=== PATIENT | male | born 1950 | race Hispanic/Latino ===

== ENCOUNTER 2018-12-19 16:24 | Inpatient (IN) | payer MEDICARE, OTHER ==
[2018-12-19] MEDS ORDERED: Sodium Chloride 0.9% 1,000 ML IV STA (17:06)
[2018-12-19 17:23] LABS: BASO % 0.4 % (0.0-2.0); EOS # 0.4 K/uL (0.0-0.7); EOS % 4.7 % (0.0-4.0); HEMOGLOBIN 14.8 g/dL (12.0-18.0); LYMPH # 1.2 K/uL (1.0-4.3); MEAN CELL VOLUME 95.4 fl (80.0-94.0); MEAN CORPUSCULAR HEMOGLOBIN 31.5 pg (27.0-31.0); MEAN PLATELET VOLUME 8.1 fl (7.2-11.7); MONO # 0.6 K/uL (0.0-0.8); MONO % 7.4 % (0.0-10.0); NEUT # 5.7 K/uL (1.8-7.0); NEUT % 72.5 % (50.0-75.0); RBC 4.69 Mil/uL (4.40-5.90); RED CELL DISTRIBUTION WIDTH 13.4 % (11.5-14.5); WHITE BLOOD COUNT 7.8 K/uL (4.8-10.8)
--- NOTE | 2018-12-19 17:27 | ED PDOC ---
HPI: General Adult Time Seen by Provider: 12/19/18 17:25 Chief Complaint (Nursing): Chest Pain Chief Complaint (Provider): CHEST PAIN History Per: Patient (68 Y/O MALE H/O AORTIC ENLARGEMENT APPROX 3.5CM/ HYPERTENSION/ AND RECENTLY TREATED PNEUMONIA 10/2018 HERE WITH CHEST PAIN INTERMITTENT X 2-3 HOURS PRIOR TO ED ARRIVAL WITH ADDITIONAL ACHINESS NOTED LEFT JAW/LEFT FOREARM. FEELS THAT SYMPTOMS COME AND GO WITH UNCLEAR ASSOCIATED WITH BREATHING.) Past Medical History Reviewed: Historical Data, Nursing Documentation, Vital Signs Vital Signs: Last Vital Signs Temp 98.8 F 12/19/18 16:35 Pulse 79 12/19/18 16:35 Resp 16 12/19/18 16:35 BP 133/75 12/19/18 16:35 Pulse Ox 97 12/19/18 16:35 - Family History Family History: States: No Known Family Hx - Home Medications Home Medications: Ambulatory Orders Medication Instructions Recorded Aspirin [Ecotrin] 81 mg PO DAILY 12/19/18 Lisinopril [Zestril] 10 mg PO DAILY 12/19/18 Ubidecarenone [Co Q10] 200 mg PO DAILY 12/19/18 - Allergies Allergies/Adverse Reactions: Allergies Allergy/AdvReac Type Severity Reaction Status Date / Time No Known Allergies Allergy Verified 12/19/18 16:34 Review of Systems ROS Statement: Except As Marked, All Systems Reviewed And Found Negative Physical Exam - Reviewed Nursing Documentation Reviewed: Yes Vital Signs Reviewed: Yes - Physical Exam Appears: Positive for: Well, Non-toxic, No Acute Distress Head Exam: Positive for: ATRAUMATIC, NORMAL INSPECTION, NORMOCEPHALIC Skin: Positive for: Normal Color, Warm, DRY Eye Exam: Positive for: EOMI, Normal appearance, PERRL ENT: Positive for: Normal ENT Inspection Neck: Positive for: Normal, Painless ROM Cardiovascular/Chest: Positive for: Regular Rate, Rhythm Respiratory: Positive for: CNT, Normal Breath Sounds Gastrointestinal/Abdominal: Positive for: Normal Exam, Soft Back: Positive for: Normal Inspection Extremity: Positive for: Normal ROM Neurologic/Psych: Positive for: Alert, Oriented - Laboratory Results Result Diagrams: 12/19/18 17:10 12/19/18 17:10 - ECG O2 Sat by Pulse Oximetry: 97 - Progress ED Course And Treament: FINDINGS: CT ANGIOGRAPHY OF THE CHEST WITH & WITHOUT CONTRAST: AORTA (CHEST AND ABDOMEN): The thoracic and abdominal aorta are unremarkable, without aneurysm, dissection or rupture. No intramural thrombus identified in the thoracic aorta on the non-contrast ct of the chest. The celiac axis, superior mesenteric artery, inferior mesenteric artery and the renal arteries are widely patent. The pelvic arteries are unremarkable. LUNGS: The lungs are well inflated. There is discoid atelectasis in the medial segment of the right middle lobe and in the medial lingula. There is linear multifocal atelectasis in both lower lobes. No evidence for focal cons olidation. There is biapical pleural parenchymal scarring. There are no endobronchial lesions. MEDIASTINUM: Normal caliber aorta and pulmonary arterial trunk. No aortic dissection. Normal size heart. No pericardial effusion. LYMPH NODES: No pathologic lymphadenopathy. PLEURA: No pneumothorax. No pleural fluid. BONES: Unremarkable. OTHER FINDINGS: None. CT ANGIOGRAPHY OF THE ABDOMEN AND PELVIS WITH CONTRAST: LIVER: Normal in size and diffuse fatty liver. No gross lesion or ductal dilatation. GALLBLADDER AND BILE DUCTS: No calcified gallstones. PANCREAS: Normal in size with homogeneous enhancement. No gross lesion or ductal dilatation. SPLEEN: Normal in size and appearance. ADRENALS: Mild thickening without discrete nodule. KIDNEYS AND URETERS: Normal in size with homogeneous enhancement. No hydronephrosis or nephrolithiasis. There is a 7.4 x 5.3 cm simple cyst with non contiguous fine peripheral calcifications in the lower pole of the right kidney. There is a 3.9 x 3.7 cm simple cyst in the left interpolar region. VASCULATURE: There is mild pectus of the infrarenal aorta with mild calcified atherosclerotic plaques and circumferential noncalcified mural plaque. STOMACH AND BOWEL: Unremarkable. No obstruction. No gross mural thickening. APPENDIX: Normal appendix. PERITONEUM: No free fluid. No free air. LYMPH NODES: No enlarged lymph nodes. BLADDER: Unremarkable. REPRODUCTIVE: The prostate gland is normal in size. BONES: No acute fracture. There is diffuse bone demineralization and multilevel degenerative changes in the spine. OTHER FINDINGS: There is a small sliding hiatal hernia. IMPRESSION: 1. No evidence for aortic dissection or aortic aneurysm. 2. No acute findings in the chest, abdomen or pelvis. 3. Fatty liver. 4. Solitary simple cysts in each kidney, the largest in the right lower pole measures 7.4 x 5.3 cm. Disposition - Clinical Impression Clinical Impression: Chest pain - Patient ED Disposition Is Patient to be Admitted: Yes - Disposition Disposition Time: 19:15 Condition: FAIR
[2018-12-19] MEDS ORDERED: Iodixanol 320 MG/ML 100 ML BOTTLE IV ONE (17:30)
[2018-12-19] MEDS ORDERED: Sodium Chloride 0.9% 50 ML IV ONE (17:31)
[2018-12-19 17:39] LABS: ALB/GLOB RATIO 1.3 (1.0-2.1); ALBUMIN 4.2 g/dL (3.5-5.0); ALT/SGPT 27 U/L (21-72); AST/SGOT 31 U/L (17-59); BLOOD UREA NITROGEN 20 mg/dl (9-20); CALCIUM 9.6 mg/dL (8.4-10.2); GFR NON-AFRICAN AMERICAN > 60
--- NOTE | 2018-12-19 17:54 | RAD ---
Date of service: 12/19/2018 HISTORY: Chest pain COMPARISON: No prior. FINDINGS: LUNGS: The lungs are hyperinflated and there is peribronchial thickening with chronic changes in both lungs. There is linear atelectasis/scarring in the left lower lobe. PLEURA: No pleural effusions or pneumothorax. CARDIOVASCULAR: The heart is normal in size. No aortic atherosclerotic calcifications present. OSSEOUS STRUCTURES: Within normal limits for the patient's age. VISUALIZED UPPER ABDOMEN: Normal. OTHER FINDINGS: None. IMPRESSION: No active pulmonary disease. COPD.
[2018-12-19 17:55] LABS: PROTHROMBIN TIME 11.5 Seconds (9.8-13.1)
[2018-12-19 17:57] LABS: PARTIAL THROMBOPLASTIN TIME 38.6 Seconds (25.6-37.1)
--- NOTE | 2018-12-19 18:38 | CT ---
PROCEDURE: CT Angiography Chest, Abdomen and Pelvis with and without intravenous contrast HISTORY: r/o aortic dissection COMPARISON: None. TECHNIQUE: Contiguous axial images of the chest, abdomen and pelvis were obtained in the phase of aortic enhancement. A noncontrast enhanced CT of the chest was also obtained to evaluate for possible intramural thrombus. Coronal and sagittal reformats were generated. IV dose administered: 95 mL Visipaque 320 Radiation dose: Total exam DLP = 805.49. MGy-cm. This CT exam was performed using one or more of the following dose reduction techniques: Automated exposure control, adjustment of the mA and/or kV according to patient size, and/or use of iterative reconstruction technique. FINDINGS: CT ANGIOGRAPHY OF THE CHEST WITH & WITHOUT CONTRAST: AORTA (CHEST AND ABDOMEN): The thoracic and abdominal aorta are unremarkable, without aneurysm, dissection or rupture. No intramural thrombus identified in the thoracic aorta on the non-contrast ct of the chest. The celiac axis, superior mesenteric artery, inferior mesenteric artery and the renal arteries are widely patent. The pelvic arteries are unremarkable. LUNGS: The lungs are well inflated. There is discoid atelectasis in the medial segment of the right middle lobe and in the medial lingula. There is linear multifocal atelectasis in both lower lobes. No evidence for focal consolidation. There is biapical pleural parenchymal scarring. There are no endobronchial lesions. MEDIASTINUM: Normal caliber aorta and pulmonary arterial trunk. No aortic dissection. Normal size heart. No pericardial effusion. LYMPH NODES: No pathologic lymphadenopathy. PLEURA: No pneumothorax. No pleural fluid. BONES: Unremarkable. OTHER FINDINGS: None. CT ANGIOGRAPHY OF THE ABDOMEN AND PELVIS WITH CONTRAST: LIVER: Normal in size and diffuse fatty liver. No gross lesion or ductal dilatation. GALLBLADDER AND BILE DUCTS: No calcified gallstones. PANCREAS: Normal in size with homogeneous enhancement. No gross lesion or ductal dilatation. SPLEEN: Normal in size and appearance. ADRENALS: Mild thickening without discrete nodule. KIDNEYS AND URETERS: Normal in size with homogeneous enhancement. No hydronephrosis or nephrolithiasis. There is a 7.4 x 5.3 cm simple cyst with non contiguous fine peripheral calcifications in the lower pole of the right kidney. There is a 3.9 x 3.7 cm simple cyst in the left interpolar region. VASCULATURE: There is mild pectus of the infrarenal aorta with mild calcified atherosclerotic plaques and circumferential noncalcified mural plaque. STOMACH AND BOWEL: Unremarkable. No obstruction. No gross mural thickening. APPENDIX: Normal appendix. PERITONEUM: No free fluid. No free air. LYMPH NODES: No enlarged lymph nodes. BLADDER: Unremarkable. REPRODUCTIVE: The prostate gland is normal in size. BONES: No acute fracture. There is diffuse bone demineralization and multilevel degenerative changes in the spine. OTHER FINDINGS: There is a small sliding hiatal hernia. IMPRESSION: 1. No evidence for aortic dissection or aortic aneurysm. 2. No acute findings in the chest, abdomen or pelvis. 3. Fatty liver. 4. Solitary simple cysts in each kidney, the largest in the right lower pole measures 7.4 x 5.3 cm.
[2018-12-20 06:48] LABS: BASO % 0.6 % (0.0-2.0); EOS # 0.4 K/uL (0.0-0.7); EOS % 6.8 % (0.0-4.0); HEMOGLOBIN 14.3 g/dL (12.0-18.0); LYMPH # 1.2 K/uL (1.0-4.3); LYMPH % 21.5 % (20.0-40.0); MEAN CELL VOLUME 95.5 fl (80.0-94.0); MEAN CORPUSCULAR HEMOGLOBIN 31.9 pg (27.0-31.0); MEAN CORPUSCULAR HGB CONC 33.3 g/dL (33.0-37.0); MEAN PLATELET VOLUME 8.1 fl (7.2-11.7); MONO # 0.5 K/uL (0.0-0.8); MONO % 8.7 % (0.0-10.0); NEUT # 3.5 K/uL (1.8-7.0); NEUT % 62.4 % (50.0-75.0); RBC 4.5 Mil/uL (4.40-5.90); RED CELL DISTRIBUTION WIDTH 13.4 % (11.5-14.5); WHITE BLOOD COUNT 5.6 K/uL (4.8-10.8)
[2018-12-20 07:04] LABS: LDL CHOLESTEROL 89 mg/dL (0-129)
[2018-12-20 07:09] LABS: ALB/GLOB RATIO 1.2 (1.0-2.1); ALBUMIN 3.8 g/dL (3.5-5.0); ALT/SGPT 18 U/L (21-72); AST/SGOT 23 U/L (17-59); BLOOD UREA NITROGEN 20 mg/dl (9-20); CALCIUM 9.3 mg/dL (8.4-10.2); GFR NON-AFRICAN AMERICAN > 60; HDL CHOLESTEROL 36 MG/DL (30-70)
[2018-12-20] MEDS ORDERED: Enoxaparin 40 mg Syringe SC SCH (09:00)
--- NOTE | 2018-12-20 10:00 | CARD ---
APPROVED REPORT Date of service: 12/19/2018 EKG Measurement Heart [id number] [id number] <Conclusion> Normal sinus rhythm Moderate voltage criteria for LVH, may be normal variant ST & T wave abnormality, consider inferior ischemia Abnormal ECG
--- NOTE | 2018-12-20 20:08 | CP.PCM.CON ---
History of Present Illness - History of Present Illness History of Present Illness: 68 y/o male with cp x 2 years. describes pain as stabbing in left chest, occurs sporadically. yesterday had an episode that was severe lasting 1 min and resolving on own. he states the cp occurred while walking and went away after s topping for 20 seconds. today he had an episode at rest. pt denies sob, palp, lh, syncope, neck or arm pain. no orthopnea, edema, pnd. no known hx cad. pt had cp in past, after eval it was determined to be msk. 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 pt is scheduled for mri/mra in [place] to eval for carotid disease. Review of Systems - Constitutional Constitutional: As Per HPI. absent: Anorexia, Chills, Daytime Sleepiness, Excessive Sweating, Fatigue, Fever, Frequent Falls, Headache, Increased Appetite, Lethargy, Malaise, Night Sweats, Snoring, Sleep Apnea, Weight Gain, Weight Loss, Weakness, Other - EENT Eyes: As Per HPI, Other Visual Disturbances, Loss of Vision. absent: Blind Spots, Blurred Vision, Change in Vision, Decreased Night Vision, Diplopia, Discharge, Dry Eye, Exophthalmos, Floaters, Irritation, Itchy Eyes, Loss of Peripheral Vision, Pain, Photophobia, Requires Corrective Lenses, Sees Flashes, Spots in Vision, Tunnel Vision, Other Ears: As Per HPI. absent: Decreased Hearing, Ear Discharge, Ear Pain, Tinnitus, Abnormal Hearing, Disequilibrium, Dizziness, Other Nose/Mouth/Throat: As Per HPI. absent: Epistaxis, Nasal Congestion, Nasal Discharge, Nasal Obstruction, Nasal Trauma, Nose Pain, Post Nasal Drip, Sinus Pain, Sinus Pressure, Bleeding Gums, Change in Voice, Dental Pain, Dry Mouth, Dysphagia, Halitosis, Hoarsness, Lip Swelling, Mouth Lesions, Mouth Pain, Odynophagia, Sore Throat, Throat Swelling, Tongue Swelling, Facial Pain, Neck Pain, Neck Mass, Other - Cardiovascular Cardiovascular: As Per HPI, Chest Pain, Chest Pain at Rest, Chest Pain with Activity. absent: Acrocyanosis, Claudication, Diaphoresis, Dyspnea, Dyspnea on Exertion, Edema, Irregular Heart Rhythm, Pain Radiating to Arm/Neck/Jaw, Leg Edema, Leg Ulcers, Lightheadedness, Orthopnea, Palpitations, Paroxysmal Nocturnal Dyspnea, Pedal Edema, Radiating Pain, Rapid Heart Rate, Slow Heart Rate, Syncope, Other - Respiratory Respiratory: As Per HPI. absent: Cough, Dyspnea, Hemoptysis, Dyspnea on Exertion, Wheezing, Snoring, Stridor, Pain on Inspiration, Chest Congestion, Excessive Mucous Production, Change in Mucous Color, Pain with Coughing, Other - Gastrointestinal Gastrointestinal: As Per HPI. absent: Abdominal Pain, Belching, Bloating, Change in Bowel Habits, Change in Stool Character, Coffee Ground Emesis, Constipation, Cramping, Diarrhea, Dyspepsia, Dysphagia, Early Satiety, Excessive Flatus, Fecal Incontinence, Heartburn, Hematemesis, Hematochezia, Loose Stools, Melena, Nausea, Odynophagia, Temesmus, Vomiting, Other - Genitourinary Genitourinary: As Per HPI. absent: Change in Urinary Stream, Difficulty Urinating, Dysuria, Flank Pain, Hematuria, Pyuria, Nocturia, Urinary Incontinence, Urinary Frequency, Urinary Hesitance, Urinary Urgency, Voiding Freq/Small Amts, Freq UTI, Hx Renal/Bladder Calculi, Hx /Renal Surgery, B ladder Distension, Other - Reproductive: Male Reproductive:Male: As Per HPI - Musculoskeletal Musculoskeletal: As Per HPI, Back Pain, Numbness. absent: Abnormal Gait, Arthralgias, Atrophy, Deformity, Joint Swelling, Limited Range of Motion, Loss of Height, Muscle Cramps, Muscle Weakness, Myalgias, Neck Pain, Radiating Pain into Limb, Stiffness, Tingling, Other - Integumentary Integumentary: As Per HPI. absent: Acne, Alopecia, Bleeding Lesions, Change in Hair, Change in Nails, Change in Pigmentation, Changing Lesions, Dry Skin, Erythema, Furuncle, Hirsutism, Lesions, New Lesions, Non-Healing Lesions, Photosensitivity, Pruritus, Rash, Skin Pain, Skin Ulcer, Sores, Striae, Sw elling, Unusual Bruising, Wounds, Jaundice, Other - Neurological Neurological: As Per HPI, Loss of Vision, Paresthesias, Radicular Pain, Sensory Deficit. absent: Abnormal Gait, Abnormal Hearing, Abnormal Movements, Abnormal Speech, Behavioral Changes, Burning Sensations, Confusion, Convulsions, Disequilibrium, Dizziness, Numbness, Focal Weakness, Frequent Falls, Headaches, Lack of Coordination, Memory Loss, Restless Legs, Syncope, Tingling, Tremor, Vertigo, Weakness, Other Visual Disturbances, Other - Psychiatric Psychiatric: As Per HPI. absent: Abnormal Sleep Pattern, Anhedonia, Anxiety, Auditory Hallucinations, Behavioral Changes, Change in Appetite, Change in Libido, Confusion, Depression, Difficulty Concentrating, Hallucinations, Homicidal Ideation, Hopelessness, Irritability, Memory Loss, Mood Swings, Panic Attacks, Paranoia, Suicidal Ideation, Visual Hallucinations, Tactile Hallucinations, Other - Endocrine Endocrine: As Per HPI. absent: Change in Body Appearance, Change in Libido, Cold Intolorance, Deepening of Voice, Excessive Sweating, Fatigue, Flushing, Heat Intolorance, Increase in Ring/Shoe/Hat Size, Palpitations, Polydipsia, Polyphagia, Polyuria, Other - Hematologic/Lymphatic Hematologic: As Per HPI. absent: Easy Bleeding, Easy Bruising, Lymphadenopathy, Other Past Patient History - Tetanus Immunizations Tetanus Immunization: Unknown - Past Medical History & Family History Past Medical History?: No - Past Social History Smoking Status: Heavy Smoker > 10 Cigarettes Daily Chewing Tobacco Use: No Cigar Use: No Alcohol: Occasional Drugs: Denies Home Situation {Lives}: With Family Domestic Violence: Negative - CARDIAC Hx Cardiac Disorders: Yes Hx Hypertension: Yes Hx Peripheral Vascular Disease: No - PULMONARY Hx Respiratory Disorders: No - NEUROLOGICAL Hx Neurological Disorder: Yes HX Cerebrovascular Accident: Yes - HEENT Hx HEENT Problems: No - RENAL Hx Chronic Kidney Disease: No - ENDOCRINE/METABOLIC Hx Endocrine Disorders: No - HEMATOLOGICAL/ONCOLOGICAL Hx Blood Disorders: No - INTEGUMENTARY Hx Dermatological Problems: No - MUSCULOSKELETAL/RHEUMATOLOGICAL Hx Musculoskeletal Disorders: No Hx Falls: No - GASTROINTESTINAL Hx Gastrointestinal Disorders: No - GENITOURINARY/GYNECOLOGICAL Hx Genitourinary Disorders: No - PSYCHIATRIC Hx Psychophysiologic Disorder: No Hx Substance Use: No - SURGICAL HISTORY Hx Surgeries: No - ANESTHESIA Hx Anesthesia: No Meds Allergies/Adverse Reactions: Allergies Allergy/AdvReac Type Severity Reaction Status Date / Time No Known Allergies Allergy Verified 12/19/18 16:34 - Medications Medications: Current Medications Aspirin (Ecotrin) 81 mg PO DAILY [facility] Last Admin: 12/20/18 09:00 Dose: 81 mg Enoxaparin Sodium (Lovenox) 60 mg SC Q12 [facility]; Protocol Enoxaparin Sodium (Lovenox) 40 mg SC DAILY [facility]; Protocol Famotidine (Pepcid) 20 mg PO BID [facility] Last Admin: 12/20/18 17:22 Dose: 20 mg Lisinopril (Zestril) 10 mg PO DAILY [facility] Last Admin: 12/20/18 09:02 Dose: 10 mg Metoprolol Tartrate (Lopressor) 12.5 mg PO Q12 [facility] Nitroglycerin (Nitrostat Sl Tab) 0.4 mg SL Q5M PRN PRN Reason: Other Last Admin: 12/20/18 18:33 Dose: 0.4 mg Physical Exam - Constitutional Appears: Non-toxic - Head Exam Head Exam: ATRAUMATIC, NORMAL INSPECTION, NORMOCEPHALIC - Eye Exam Eye Exam: EOMI, Normal appearance, PERRL. absent: Conjunctival injection, Nystagmus, Periorbital swelling, Periorbital tenderness, Scleral icterus Pupil Exam: NORMAL ACCOMODATION, PERRL. absent: Fixed, Irregular, Miosis, Mydriatic, Unequal - ENT Exam ENT Exam: Mucous Membranes Moist, Normal Exam. absent: Mucous Membranes Dry, Normal External Ear Exam, Normal Oropharynx, TM's Normal Bilaterally - Neck Exam Neck exam: Positive for: Normal Inspection. Negative for: Full Rom, Lym phadenopathy, Meningismus, Tenderness, Thyromegaly Additional comments: left carotid impulse 1+ right 2+ bruit over right carotid - Respiratory Exam Respiratory Exam: Clear to Auscultation Bilateral, NORMAL BREATHING PATTERN. absent: Accessory Muscle Use, Chest Wall Tenderness, Decreased Breath Sounds, Prolonged Expiratory Phase, Rales, Rhonchi, Wheezes, Respiratory Distress, Stridor - Cardiovascular Exam Cardiovascular Exam: REGULAR RHYTHM, +S1, +S2, Systolic Murmur. absent: Bradycardia, Tachycardia, Clicks, Diastolic murmur, Gallop, Irregular Rhythm, JVD, RRR, Rubs, +S4 - GI/Abdominal Exam GI & Abdominal Exam: Normal Bowel Sounds, Soft. absent: Bruit, Diminished Bowel Sounds, Distended, Firm, Guarding, Hernia, Hyperactive Bowel Sounds, Hypoactive Bowel Sounds, Mass, Organomegaly, Pulsatile Mass, Rebound, Rigid, Tenderness - Rectal Exam Rectal Exam: Deferred - Extremities Exam Extremities exam: Negative for: calf tenderness, full ROM, joint swelling, normal capillary refill, pedal edema, tenderness, pedal pulses present Additional comments: left PT and pedal pulses 1+, right 2+ - Back Exam Back exam: NORMAL INSPECTION. absent: CVA tenderness (L), CVA tenderness (R), FULL ROM, muscle spasm, paraspinal tenderness, rash noted, tenderness, vertebral tenderness - Neurological Exam Neurological exam: Alert, CN II-XII Intact, Normal Gait, Oriented x3, Reflexes Normal - Psychiatric Exam Psychiatric exam: Normal Affect, Normal Mood - Skin Skin Exam: Dry, Intact, Normal Color, Warm Results - Vital Signs Recent Vital Signs: Last Vital Signs Temp 98.1 F 12/20/18 15:48 Pulse 68 12/20/18 15:48 Resp 20 12/20/18 15:48 BP 136/82 12/20/18 15:48 Pulse Ox 98 12/20/18 15:48 - Labs Result Diagrams: 12/20/18 06:15 12/20/18 06:15 Labs: Laboratory Results - last 24 hr 12/20/18 12/20/18 12/20/18 00:20 06:15 06:15 WBC 5.6 RBC 4.50 Hgb 14.3 Hct 43.0 MCV 95.5 H MCH 31.9 H MCHC 33.3 RDW 13.4 Plt Count 207 MPV 8.1 Neut % (Auto) 62.4 Lymph % (Auto) 21.5 Smyth % (Auto) 8.7 Eos % (Auto) 6.8 H Baso % (Auto) 0.6 Neut # (Auto) 3.5 Lymph # (Auto) 1.2 Smyth # (Auto) 0.5 Eos # (Auto) 0.4 Baso # (Auto) 0.0 Sodium 138 Potassium 4.4 Chloride 102 Carbon Dioxide 26 Anion Gap 14 BUN 20 Creatinine 0.6 L Est GFR ( Amer) > 60 Est GFR (Non-Af Amer) > 60 Random Glucose 93 Calcium 9.3 Phosphorus 4.0 Magnesium 2.1 Total Bilirubin 0.4 AST 23 ALT 18 L D Alkaline Phosphatase 87 Troponin I < 0.0120 Total Protein 6.9 Albumin 3.8 Globulin 3.1 Albumin/Globulin Ratio 1.2 Triglycerides 85 Cholesterol 144 LDL Cholesterol Direct 89 HDL Cholesterol 36 TSH 3rd Generation 1.65 12/20/18 12/20/18 09:10 17:47 WBC RBC Hgb Hct MCV MCH MCHC RDW Plt Count MPV Neut % (Auto) Lymph % (Auto) Smyth % (Auto) Eos % (Auto) Baso % (Auto) Neut # (Auto) Lymph # (Auto) Smyth # (Auto) Eos # (Auto) Baso # (Auto) Sodium Potassium Chloride Carbon Dioxide Anion Gap BUN Creatinine Est GFR ( Amer) Est GFR (Non-Af Amer) Random Glucose Calcium Phosphorus Magnesium Total Bilirubin AST ALT Alkaline Phosphatase Troponin I < 0.0120 < 0.0120 Total Protein Albumin Globulin Albumin/Globulin Ratio Triglycerides Cholesterol LDL Cholesterol Direct HDL Cholesterol TSH 3rd Generation - EKG Data EKG Interpreted by: Myself EKG shows normal: Sinus rhythm Rate: Normal - Impressions Impression: sr with LVH and chronic inverted t waves in inferior leads (compared to ekg done at [facility]). Assessment & Plan (1) Chest pain Status: Acute (2) HTN (hypertension) Status: Acute (3) Dyslipidemia Status: Acute (4) CVA, old, disturbances of vision Status: Acute (5) Aortic stenosis Status: Acute (6) Carotid bruit Status: Acute (7) Abnormal carotid pulse Status: Acute (8) Abnormal foot pulse Status: Acute - Assessment and Plan (Free Text) Plan: PT WITH ATYPICAL CP AND CHRONIC EKG CHANGES. PT DOES HAVE EVIDENCE OF PVD AND LONG HX OF TOBACCO USE THUS INCREASING HIS RISK OF CAD. IT IS UNCLEAR IF HIS CP IS DUE TO ACTIVE CORONARY PROCESS. RECOMMEND EXERCISE NUC STRESS TEST IN AM. ECHO IMAGES REVIEWED PERSONALLY. CHECK LIPIDS. LOVENOX, BB, ASA, SL NTG ORDERED. 50 MIN TOTAL CARE TIME. MYLES RIZVI THE REFERRING PROVIDER.
--- NOTE | 2018-12-20 20:08 | CARD ---
APPROVED REPORT Date of service: 12/20/2018 EXAM: Two-dimensional and M-mode echocardiogram with Doppler and color Doppler. Other Information Quality : GoodR[employer] : NSR INDICATION Chest Pain 2D DIMENSIONS IVSd1.32 (0.7-1.1cm)LVDd4.87 (3.9-5.9cm) LVOT Diameter2.37 (1.8-2.4cm)PWd1.15 (0.7-1.1cm) IVSs1.65 (0.8-1.2cm)LVDs3.45 (2.5-4.0cm) FS (%) 29.2 %PWs1.77 (0.8-1.2cm) M-Mode DIMENSIONS Left Atrium (MM)3.88 (2.5-4.0cm)IVSd0.82 (0.7-1.1cm) Aortic Root3.59 (2.2-3.7cm)LVDd6.53 (4.0-5.6cm) PWd1.03 (0.7-1.1cm)IVSs1.00 cm FS (%) 18 %LVDs5.35 (2.0-3.8cm) PWs1.15 cm Aortic Valve AoV Peak Jizysefq067.1cm/sAoV VTI54.3cmAO Peak GR.25mmHg LVOT Peak Wsfxydin41.8cm/sLVOT VTI15.78cmAO Mean GR.14mmHg MIRIAM (VMAX)0.30jy7QXK (VTI)0.69cm2 Mitral Valve MV E Mrozpkvj06.2cm/sMV DECEL [id number] A Gafyxzbz34.1cm/s MV EGC945jbS/A ratio0.6MVA (PHT)1.68cm2 TDI Lateral E' Peak V7.74cm/sMedial E' Peak V5.13cm/sE/Lateral E'4.8 E/Medial E'7.3 LEFT VENTRICLE The left ventricle is normal size. There is mild concentric left ventricular hypertrophy. The left ventricular systolic function is normal. The estimated ejection fraction is 55-60% No regional wall motion abnormalities noted.. Transmitral Doppler flow pattern is Grade I-abnormal relaxation pattern. No left ventricle thrombus noted on this study. There is no ventricular septal defect visualized. There is no left ventricular aneurysm. There is no mass noted in the left ventricle. RIGHT VENTRICLE The right ventricle is normal size. There is normal right ventricular wall thickness. The right ventricular systolic function is normal. ATRIA The left atrium is borderline dilated. The right atrium size is normal. The interatrial septum is intact with no evidence for an atrial septal defect. AORTIC VALVE The aortic valve is normal in structure. Calcified leaflets. Trace aortic regurgitation is present. There is mild to moderate aortic valvular stenosis. There is no aortic valvular vegetation. MITRAL VALVE The mitral valve is normal in structure. There is no evidence of mitral valve prolapse. There is no mitral valve stenosis. There is trace mitral valve regurgitation noted. TRICUSPID VALVE The tricuspid valve is normal in structure. There is no significant tricuspid valve regurgitation noted. There is no tricuspid valve prolapse or vegetation. There is no tricuspid valve stenosis. PULMONIC VALVE The pulmonary valve is normal in structure. There is no pulmonic valvular regurgitation. There is no pulmonic valvular stenosis. GREAT VESSELS The aortic root is normal in size. The ascending aorta is normal in size. The pulmonary artery is normal. The IVC is normal in size and collapses >50% with inspiration. PERICARDIAL EFFUSION There is no pericardial effusion. There is no pleural effusion. <Conclusion> There is mild concentric left ventricular hypertrophy. The estimated ejection fraction is 55-60% Transmitral Doppler flow pattern is Grade I-abnormal relaxation pattern. The left atrium is borderline dilated. There is mild to moderate aortic valvular stenosis. Peak aortic velcity is - 3 m/sec. Correlate clinically. There is no significant tricuspid valve regurgitation noted.
[2018-12-20] MEDS ORDERED: Enoxaparin 60 mg Syringe SC SCH (21:00)
[2018-12-20 23:56] VITALS: BMI 19.9
--- NOTE | 2018-12-21 00:59 | CARD ---
APPROVED REPORT Date of service: 12/20/2018 EKG Measurement Heart [id number] VT 158P5 [id number] <Conclusion> Normal sinus rhythm Minimal voltage criteria for LVH, may be normal variant NDSTT abnormalities Abnormal ECG
[2018-12-21] MEDS ORDERED: Enoxaparin 40 mg Syringe SC SCH (09:00)
--- NOTE | 2018-12-21 12:00 | CP.PCM.HP ---
Past Patient History - Tetanus Immunizations Tetanus Immunization: Unknown - Past Medical History & Family History Past Medical History?: No - Past Social History Smoking Status: Heavy Smoker > 10 Cigarettes Daily Chewing Tobacco Use: No Cigar Use: No Alcohol: Occasional Drugs: Denies Home Situation {Lives}: With Family Domestic Violence: Negative - CARDIAC Hx Cardiac Disorders: Yes Hx Hypertension: Yes Hx Peripheral Vascular Disease: No - PULMONARY Hx Respiratory Disorders: No - NEUROLOGICAL Hx Neurological Disorder: Yes HX Cerebrovascular Accident: Yes - HEENT Hx HEENT Problems: No - RENAL Hx Chronic Kidney Disease: No - ENDOCRINE/METABOLIC Hx Endocrine Disorders: No - HEMATOLOGICAL/ONCOLOGICAL Hx Blood Disorders: No - INTEGUMENTARY Hx Dermatological Problems: No - MUSCULOSKELETAL/RHEUMATOLOGICAL Hx Musculoskeletal Disorders: No Hx Falls: No - GASTROINTESTINAL Hx Gastrointestinal Disorders: No - GENITOURINARY/GYNECOLOGICAL Hx Genitourinary Disorders: No - PSYCHIATRIC Hx Psychophysiologic Disorder: No Hx Substance Use: No - SURGICAL HISTORY Hx Surgeries: No - ANESTHESIA Hx Anesthesia: No Meds Allergies/Adverse Reactions: Allergies Allergy/AdvReac Type Severity Reaction Status Date / Time No Known Allergies Allergy Verified 12/19/18 16:34 Results - Vital Signs Recent Vital Signs: Last Vital Signs Temp 97.4 F L 12/21/18 08:37 Pulse 58 L 12/21/18 08:44 Resp 18 12/21/18 08:37 BP 130/82 12/21/18 08:44 Pulse Ox 97 12/21/18 08:37 - Labs Result Diagrams: 12/20/18 06:15 12/20/18 06:15 Labs: Laboratory Results - last 24 hr 12/20/18 17:47 Troponin I < 0.0120
--- NOTE | 2018-12-21 17:25 | CARD ---
APPROVED REPORT Date of service: 12/20/2018 Protocol: KATI Test Type: Stress Nuclear Medications: ASA 81mg, Enoxaparin 60mg, Pepcid 20mg, Lisinoopril 10mg, Metoprolol 12.5mg, NTG Medical History: Aortic Enlargement, Eye stroke 2 years ago, Smoker, Hypetension, Target HR: 150 bpm Resting ECG: abnormal Resting Heart Rate: 78 bpm Resting Blood Pressure: 149/89mmHg submaximum (85%): 128 bpm TEST SUMMARY [id number]/80.0. [id number]/89.1. [id number]/89.1. [id number]/89.0. [id number]:[id number]/70.0. [id number]/60.1. [id number]/60.0. [id number]/80.0. POST EXERCISE Reason for Termination: Fatigue Target HR: No Max HR: 120 bpm 80% of Maximum Predicted HR: 150 bpm Exercise duration: 07:08 min:sec, 3 Stage Exercise capacity: 8.7METs Max Blood Pressure: 182/60mmHg Blood Pressure response to exercise: normal resting BP - appropriate response Heart Rate response to exercise: appropriate Chest Pain: No, none Angina index: 0 Arrhythmia: Yes, ventricular premature beats ST Change: Yes, Depression downsloping Deviation: 0 mm Clinical Indications Under Appropriate Use Criteria Patient was scheduled for nuclear [facility] chest pressure. The patient has history of hypertension and moderate ascending Aortic aneursym and moderate Aortic stenosis gradient 20 mmHg Stress EKG Interpretation There was evidence of LVH on the electrocardiogram and increasing st changes suggested of Myocardial ischemia on V4 to V6 of the electrocardiogram RESTING ECG Rhythm: Sinus Conduction: Normal Arrhythmias: None Repolarization: Normal STRESS ECG Rhythm: Sinus Conduction: Normal Arrhythmias: None Repolarization: Normal Strongly positive ST-Segment changes. ST-Sement Location: Inferior.Lateral. Timing of ST-Segment Depression: Stress and recovery ST-Segment Configuration: Downsloping ST-Segment Depression Amount: 2 mm EXAM: Myocardial Perfusion REST/STRESS Image QualityGood Imaging Protocol The imaging protocol used to acquire images was Rest Tc-99m/stress Tc-99m 1 day Rest Spect myocardial perfusion imaging was performed in supine position 73 minutes following the injection of 10 mCi of Tc-99 Myoview. Time of rest injection: 9:17 Time of rest imagin:30 At peak stress, the patient was injected intravenously with 30mCi of Tc-99 tetrofosmin after an infusion time of minutes and seconds. Time of stress injection: 11:51 Time of stress imagin:40 Gated Stress Spect was performed 169 minutes after intravenous Tc-99 Myoview injection. The images were gated to evaluate regional wall motion and calculate ventricular ejection fraction. NUCLEAR IMAGE INTERPRETATION Study quality was excellent. Left Ventricular size was Enlarged at Rest and Stress. Lung uptake was Normal. Left Ventricular ejection fraction is 47%. LV Perfusion Abnormal perfusion nuclear scan with a significant defect on the inferior wall of the left ventricle other areas affected are in some degrees the Cx (8%) and LAD (1%) LV Perfusion 1 Perfusion Defect Location: basal inferiorlateral Perfusion Defect Size: Medium (3-4 segments) Perfusion Defect Severity: Moderate Type of Perfusion Defect: Reversible Wall Motion Abnormal wall motion with severe hypokinesia of the inferior, apex and anterior wall of the left ventricle with reduction of the LVEF 47% CONCLUSION 1. -Abnormal nuclear scan with reversible defect mostly on the inferior wall of the left ventricle mostly on the RCA territory. The Cx and LAD territort are also affected. 2. -Abnormal wall motion with severe hypokinesia of the inferior, apex and part of the anterior wall of the left ventricle. Recommendation Further studies llike cardiac catheteriation recommended if clinically indicated. Chanelle Duque industrial methods consultant service notified.
--- NOTE | 2018-12-22 15:41 | CP.PCM.PN ---
Subjective - Date & Time of Evaluation Date of Evaluation: 12/22/18 Time of Evaluation: 15:41 - Subjective Subjective: NO COMPLAINTS. SP CATH TODAY [place] [facility] [place] - Vital Signs/Intake and Output Vital Signs (last 24 hours): Temp Pulse Resp BP Pulse Ox 97.9 F 66 18 128/83 95 12/22/18 08:00 12/22/18 08:28 12/22/18 08:00 12/22/18 08:28 12/22/18 08:00 - Medications Medications: Current Medications Aspirin (Ecotrin) 81 mg PO DAILY [facility] Last Admin: 12/22/18 08:28 Dose: 81 mg Famotidine (Pepcid) 20 mg PO BID [facility] Last Admin: 12/22/18 08:28 Dose: 20 mg Lisinopril (Zestril) 10 mg PO DAILY [facility] Last Admin: 12/22/18 08:28 Dose: 10 mg Metoprolol Tartrate (Lopressor) 12.5 mg PO Q12 [facility] Last Admin: 12/22/18 08:28 Dose: 12.5 mg Nitroglycerin (Nitrostat Sl Tab) 0.4 mg SL Q5M PRN PRN Reason: Other Last Admin: 12/20/18 18:33 Dose: 0.4 mg - Labs Labs: 12/20/18 06:15 12/20/18 06:15 PT 11.5 Seconds (9.8-13.1) 12/19/18 17:30 INR 1.0 12/19/18 17:30 APTT 38.6 Seconds (25.6-37.1) H 12/19/18 17:30 - Constitutional Appears: Well - Head Exam Head Exam: ATRAUMATIC, NORMAL INSPECTION, NORMOCEPHALIC - Eye Exam Eye Exam: EOMI, Normal appearance, PERRL. absent: Conjunctival injection, Nystagmus, Periorbital swelling, Periorbital tenderness, Scleral icterus Pupil Exam: NORMAL ACCOMODATION, PERRL - ENT Exam ENT Exam: Mucous Membranes Moist, Normal Exam. absent: Mucous Membranes Dry, Normal External Ear Exam, Normal Oropharynx, TM's Normal Bilaterally - Neck Exam Neck Exam: Full ROM, Normal Inspection. absent: Lymphadenopathy, Meningismus, Tenderness, Thyromegaly - Respiratory Exam Respiratory Exam: Clear to Ausculation Bilateral, NORMAL BREATHING PATTERN. absent: Accessory Muscle Use, Chest Wall Tenderness, Decreased Breath Sounds, Prolonged Expiratory Phase, Rales, Rhonchi, Wheezes, Respiratory Distress, Stridor - Cardiovascular Exam Cardiovascular Exam: REGULAR RHYTHM, +S1, +S2, Murmur. absent: Bradycardia, Tachycardia, Clicks, Diastolic murmur, Gallop, Irregular Rhythm, JVD, RRR, Rubs, +S4 - GI/Abdominal Exam GI & Abdominal Exam: Soft, Normal Bowel Sounds - Rectal Exam Rectal Exam: Deferred - Extremities Exam Extremities Exam: Full ROM, Normal Capillary Refill. absent: Calf Tenderness, Joint Swelling, Normal Inspection, Pedal Edema, Tenderness - Back Exam Back Exam: NORMAL INSPECTION. absent: CVA tenderness (L), CVA tenderness (R), Full ROM, muscle spasm, paraspinal tenderness, rash noted, tenderness, vertebral tenderness - Neurological Exam Neurological Exam: Alert, Awake, CN II-XII Intact, Normal Gait, Oriented x3. absent: Abnormal Gait, Altered, Motor Sensory Deficit, Reflexes Normal - Psychiatric Exam Psychiatric exam: Normal Affect, Normal Mood. absent: Agitated, Anxious, Depressed, Flat Affect, Homicidal Ideation, Manic, Suicidal Ideation - Skin Skin Exam: Dry, Intact, Normal Color, Warm. 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 PT WILL UNDERGO A HIGH RISK INTERVENTION ON Tuesday WITH DUAL ACCESS OF BOTH RIGHT AND LEFT CORONARIES SIMULTANEOUSLY AND TEMP PM INSERTION DURING. RISK IS 7% COMPLICATION. HE IS AWARE. PT STABLE POST CATH TODAY. 45 MIN TOTAL CARE TIME.
[2018-12-23] MEDS ORDERED: Sodium Chloride 0.9% 1,000 ML IV SCH (07:15)
[2018-12-23 08:07] VITALS: RESP 20
[2018-12-23 12:32] VITALS: BP 126/75; PULSE 58; TEMP 98.3; O2SAT 99
--- NOTE | 2018-12-23 22:05 | CP.PCM.PN ---
Subjective - Date & Time of Evaluation Date of Evaluation: 12/21/18 Time of Evaluation: 17:35 Objective - Vital Signs/Intake and Output Vital Signs (last 24 hours): Temp Pulse Resp BP Pulse Ox 98.3 F 58 L 20 126/75 99 12/23/18 12:32 12/23/18 12:32 12/23/18 12:32 12/23/18 12:32 12/23/18 12:32 - Labs Labs: 12/20/18 06:15 12/20/18 06:15 PT 11.5 Seconds (9.8-13.1) 12/19/18 17:30 INR 1.0 12/19/18 17:30 APTT 38.6 Seconds (25.6-37.1) H 12/19/18 17:30
--- NOTE | 2018-12-23 22:06 | CP.PCM.PN ---
Subjective - Date & Time of Evaluation Date of Evaluation: 12/22/18 Time of Evaluation: 18:25 Objective - Vital Signs/Intake and Output Vital Signs (last 24 hours): Temp Pulse Resp BP Pulse Ox 98.3 F 58 L 20 126/75 99 12/23/18 12:32 12/23/18 12:32 12/23/18 12:32 12/23/18 12:32 12/23/18 12:32 - Labs Labs: 12/20/18 06:15 12/20/18 06:15 PT 11.5 Seconds (9.8-13.1) 12/19/18 17:30 INR 1.0 12/19/18 17:30 APTT 38.6 Seconds (25.6-37.1) H 12/19/18 17:30
--- NOTE | 2018-12-23 22:07 | CP.PCM.DIS ---
Provider - Provider Date of Admission: 12/21/18 19:45 Attending physician: Wilfrid Mckeon MD Consults: 12/20/18 18:40 Cardiology Consult Routine Comment: Consulting Provider: Chanelle Hudson Consulting Physician: Chanelle Hudson Reason for Consult: Chest pain Time Spent in preparation of Discharge (in minutes): 30 Diagnosis - Discharge Diagnosis (1) Cardiac ischemia Status: Acute (2) Abnormal carotid pulse Status: Acute (3) Aortic stenosis Status: Acute (4) CAD (coronary artery disease) Status: Acute (5) CVA, old, disturbances of vision Status: Acute (6) Chest pain Status: Acute (7) Dyslipidemia Status: Acute (8) HTN (hypertension) Status: Acute Hospital Course - Lab Results Lab Results: Most Recent Lab Values WBC 5.6 K/uL (4.8-10.8) 12/20/18 06:15 RBC 4.50 Mil/uL (4.40-5.90) 12/20/18 06:15 Hgb 14.3 g/dL (12.0-18.0) 12/20/18 06:15 Hct 43.0 % (35.0-51.0) 12/20/18 06:15 MCV 95.5 fl (80.0-94.0) H 12/20/18 06:15 MCH 31.9 pg (27.0-31.0) H 12/20/18 06:15 MCHC 33.3 g/dL (33.0-37.0) 12/20/18 06:15 RDW 13.4 % (11.5-14.5) 12/20/18 06:15 Plt Count 207 K/uL (130-400) 12/20/18 06:15 MPV 8.1 fl (7.2-11.7) 12/20/18 06:15 Neut % (Auto) 62.4 % (50.0-75.0) 12/20/18 06:15 Lymph % (Auto) 21.5 % (20.0-40.0) 12/20/18 06:15 [place] % (Auto) 8.7 % (0.0-10.0) 12/20/18 06:15 Eos % (Auto) 6.8 % (0.0-4.0) H 12/20/18 06:15 Baso % (Auto) 0.6 % (0.0-2.0) 12/20/18 06:15 Neut # (Auto) 3.5 K/uL (1.8-7.0) 12/20/18 06:15 Lymph # (Auto) 1.2 K/uL (1.0-4.3) 12/20/18 06:15 [place] # (Auto) 0.5 K/uL (0.0-0.8) 12/20/18 06:15 Eos # (Auto) 0.4 K/uL (0.0-0.7) 12/20/18 06:15 Baso # (Auto) 0.0 K/uL (0.0-0.2) 12/20/18 06:15 PT 11.5 Seconds (9.8-13.1) 12/19/18 17:30 INR 1.0 12/19/18 17:30 APTT 38.6 Seconds (25.6-37.1) H 12/19/18 17:30 Sodium 138 mmol/l (132-148) 12/20/18 06:15 Potassium 4.4 MMOL/L (3.6-5.0) 12/20/18 06:15 Chloride 102 mmol/L (98-107) 12/20/18 06:15 Carbon Dioxide 26 mmol/L (22-30) 12/20/18 06:15 Anion Gap 14 (10-20) 12/20/18 06:15 BUN 20 mg/dl (9-20) 12/20/18 06:15 Creatinine 0.6 mg/dl (0.8-1.5) L 12/20/18 06:15 Est GFR ( Amer) > 60 12/20/18 06:15 Est GFR (Non-Af Amer) > 60 12/20/18 06:15 Random Glucose 93 mg/dL (75-110) 12/20/18 06:15 Calcium 9.3 mg/dL (8.4-10.2) 12/20/18 06:15 Phosphorus 4.0 mg/dl (2.5-4.5) 12/20/18 06:15 Magnesium 2.1 MG/DL (1.6-2.3) 12/20/18 06:15 Total Bilirubin 0.4 mg/dl (0.2-1.3) 12/20/18 06:15 AST 23 U/L (17-59) 12/20/18 06:15 ALT 18 U/L (21-72) L D 12/20/18 06:15 Alkaline Phosphatase 87 U/L (38-126) 12/20/18 06:15 Troponin I < 0.0120 ng/mL (0.00-0.120) 12/20/18 17:47 Total Protein 6.9 G/DL (6.3-8.2) 12/20/18 06:15 Albumin 3.8 g/dL (3.5-5.0) 12/20/18 06:15 Globulin 3.1 gm/dL (2.2-3.9) 12/20/18 06:15 Albumin/Globulin Ratio 1.2 (1.0-2.1) 12/20/18 06:15 Triglycerides 85 mg/DL (0-149) 12/20/18 06:15 Cholesterol 144 mg/dL (0-199) 12/20/18 06:15 LDL Cholesterol Direct 89 mg/dL (0-129) 12/20/18 06:15 HDL Cholesterol 36 MG/DL (30-70) 12/20/18 06:15 TSH 3rd Generation 1.65 mIU/ML (0.46-4.68) 12/20/18 06:15 Blood Type AB POSITIVE 12/19/18 17:30 Blood Type Confirm AB POSITIVE 12/19/18 17:51 Antibody Screen Negative 12/19/18 17:30 BBK History Checked No verified bt 12/19/18 17:30 Discharge Exam - Head Exam Head Exam: ATRAUMATIC, NORMAL INSPECTION, NORMOCEPHALIC Discharge Plan - Discharge Medications Prescriptions: Metoprolol Tartrate [Lopressor] 12.5 mg PO Q12 60 Days tab Nitroglycerin [Nitrostat] 0.4 mg SL Q2 PRN #30 tab.subl PRN Reason: Other - Follow Up Plan Condition: FAIR Disposition: HOME/ ROUTINE Instructions: Arrhythmias (DC), Bradycardia (DC) Additional Instructions: Scheduled for cardiac cath on Tuesday12/25/2018 @0700 [facility] by Dr. Hudson. Please arrive one hour prior to procedure nothing to eat or drink after midnight Tuesday
== END 2018-12-23 13:13 | disposition home or self-care (01) | DRG 287 ==
LOC: H.ER 16:24 → H.ERHOLD 19:15 → H.TEL 12-20 15:35 → OBSVTOIN 12-21 19:45 → H.TEL 12-22 16:29
PROVIDERS: ADMIT Internal Medicine; ATTEND Internal Medicine
PROC: 4A023N7 Measurement of Cardiac Sampling and Pressure, Left Heart, Percutaneous Approach (ICD-10-PCS; principal; 2018-12-22)
PROC: B205YZZ Plain Radiography of Left Heart using Other Contrast (ICD-10-PCS; 2018-12-22)
DX: I25.10 Atherosclerotic heart disease of native coronary artery without angina pectoris (principal); I25.82 Chronic total occlusion of coronary artery; R07.89 Other chest pain; I10 Essential (primary) hypertension; E78.5 Hyperlipidemia, unspecified; I35.0 Nonrheumatic aortic (valve) stenosis; R09.89 Other specified symptoms and signs involving the circulatory and respiratory systems; I69.398 Other sequelae of cerebral infarction; H53.8 Other visual disturbances; F17.210 Nicotine dependence, cigarettes, uncomplicated; Z79.82 Long term (current) use of aspirin